=== PATIENT | male | born 1940 | race Caucasian/White ===

== ENCOUNTER → 2021-04-17 14:30 | Outpatient (CLI) | payer MEDICARE, OTHER, SELFPAY ==
[2021-04-17 16:04] LABS: ALB/GLOB Ratio 0.8 RATIO (0.9-2.4); AST(SGOT) 128 U/L (15-37); Alanine Aminotransfer ALT/SGPT 233 U/L (16-61); Albumin, Serum 3.4 g/dL (3.2-5.0); Alkaline Phosphatase 96 U/L (45-117); Anion Gap 7 (5-15); BUN 21 mg/dL (7-18); BUN/Creat Ratio 14.8 RATIO (10-20); Calcium,Total 9.3 mg/dL (8.5-10.1); Chloride 107 mmol/L (98-107); Creatinine, Serum 1.42 mg/dL (0.70-1.30); EST Glomerular Filtration Rate 51 mL/min (>60); Est Glom Filt Rate - Afr Amer 62 mL/min (>60); Ferritin 266 ng/mL (26-388); Globulin 4.4 g/dL (2.2-4.2); Glucose 110 mg/dL (74-106); LDH 258 U/L (87-241); Potassium 4.2 mmol/L (3.5-5.1); Protein, Total 7.8 g/dL (6.4-8.2); Sodium Level 143 mmol/L (136-145)
[2021-04-20 13:10] LABS: ANTINUCLEAR ANTIBODIES DIRECT Positive (Negative); Anti-Mitochondrial AB <20.0 Units (0.0-20.0)
[2021-04-24 06:08] LABS: Ceruloplasmin 15.1 mg/dL (16.0-31.0); HEPATITIS B SURFACE AG Negative (Negative); Hepatitis A IgM Antibody Negative (Negative); Hepatitis B Core AB IgM Negative (Negative)
[2021-04-24 10:00] LABS: Anti-Smooth Muscle ABS 6 Units (0-19); Carbohydrate Ag 19-9 2261 96 U/mL (0-35); Carcinoembryonic Antigen 2.6 ng/mL (0.0-4.7); Copper, Serum or Plasma 56 ug/dL (69-132); Hep C Antibodies <0.1 s/co ratio (0.0-0.9)
== END ==
LOC: LAB 14:32
PROVIDERS: Referring Provider Internal Medicine Gastroenterology; Visit Provider Internal Medicine Gastroenterology
DX: C22.8 Malignant neoplasm of liver, primary, unspecified as to type (principal); R16.0 Hepatomegaly, not elsewhere classified; C18.9 Malignant neoplasm of colon, unspecified
CPT/HCPCS: 36415; 80053; 80074; 82105; 82378; 82390; 82525; 82728; 83516; 83615; 86038; 86301

== ENCOUNTER → 2021-05-01 08:37 | Outpatient (CLI) | payer MEDICARE, OTHER, SELFPAY ==
[2021-05-01] VITALS (10 sets, daily range): BP systolic 91–145; BP diastolic 49–72; PULSE 51–64; RESP 14–21; TEMP 36.6; O2SAT 94–100; BMI 26.2
--- NOTE | 2021-05-01 | IMM_PTH ---
PATIENT: SERVANDO BOSTON LOC: CT U#:[id number] AGE/SX: 85/M ROOM: RE05/01/[address]: Dr. Mahendra Young DO : 1940 BED: DIS: SPEC #: [id number] RECD: 05/04/21 14:10 STATUS: RUIZ REQ #: [id number] KARIN: 05/01/21 00:[address]: Mahendra Young DEPT: IMMUNOHISTOCHEMISTRY RECD BY: Geraldine Anna ENTERED: 05/04/21 14:11 SP TYPE: IMMUNO OTHR DR: [facility] Tissues: Liver, NOS Procedures: RCC (add) NAPSIN A (add) CK20 (add) CK5-6 (add) CK7 (add) CK8 (add) HEP PAR (add) TTF1 (add) Pankeratin (initial) P40 (add) PSAP (add) PHYSICIAN & INSTITUTION [address] [address] SPECIMEN INFORMATION: Tissue Source: Liver mass Clinical Info: Liver mass Specimen Number: [id number] CPT code: 18580, 72353 x10 METHODOLOGY: Deparaffinized sections of prefer/formalin-fixed tissue or PAP/DQ stained slides are incubated with monoclonal/polyclonal antibodies/oligonucleotide probes. Localization is made via biotin free immunoperoxidase method. Appropriate controls are performed and reacted as expected. Results on target cell population are indicated in the following table: RESULTS: ANTIBODY / CLONE RESULT AE1-3 (AE1/AE3/PCK26) negative CK7 (OV-TL12/30) negative CK8 (01qtfmE08) negative CK20 (KS20.8) negative TTF-1 (8G7G3/1) positive, cytoplasmic staining Napsin A (Rabbit Polyclonal) negative HepPar (OCh1E5) positive RCC (PN-15) negative PSAP (PASE/4LJ) negative CK5-6 (D5 & 1684) negative P40 (BC28) negative These tests were developed and their performance characteristics determined by [facility]. They may not have been cleared or approved by the U.S. Food and Drug Administration. The FDA has determined that such clearance or approval is not necessary. The above immunohistochemical/dualISH markers are ordered and reviewed by the Pathologist. INTERPRETATION: Liver mass, CT-guided core biopsy: Consistent with hepatocellular carcinoma. LAKEISHA:mel 05/05/2021 Case has been reviewed in consultation with Dr. Martines who concurs with the above diagnosis. IDC:AM
--- NOTE | 2021-05-01 | ASPIGT_PTH ---
PATIENT: SERVANDO BOSTON LOC: [place] U#:[id number] AGE/SX: 85/M ROOM: RE05/01/[address]: Dr. Mahendra Young DO : 1940 BED: DIS: SPEC #: [id number] RECD: 05/01/21 10:58 STATUS: RUIZ REShashi #: [id number] KARIN: 05/01/21 00:[address]: Mahendra Young DEPT: SURGICAL PATHOLOGY RECD BY: Carlos Eastman ENTERED: 05/01/21 10:58 SP TYPE: ASP RAD OT DR: [facility] Tissues: Liver, NOS Procedures: FNA Specimen Adequacy Special Stain Group II Surgery Specimen Level IV Imprint (control) HEADER OPERATION: Liver, CT-guided core biopsy PRE-OP DIAGNOSIS: Cirrhosis / liver mass TISSUE SUBMITTED: Liver mass 18-gauge core x5 MICROSCOPIC DIAGNOSIS Liver mass, CT-guided core biopsy: Consistent with hepatocellular carcinoma. See comment. LAKEISHA:mel 05/04/2021 COMMENT The specimen is evaluated at the time of biopsy by Dr. Hunt. Immediate Evaluation = Adequate for evaluation. Atypical cells noted. Immunohistochemistry ([id number]) supports the above diagnosis. Flow cytometry study from [employer] [facility] shows no evidence of B or T-cell non-Hodgkin lymphoma. The complete report s viewable in patient?s EMR. Case has been reviewed in consultation with Dr. Martines who concurs with the above diagnosis. IDC:AM MICROSCOPIC DESCRIPTION Slides are reviewed. GROSS DESCRIPTION Received in fixative is one container labeled with the patient's name and designated liver. The specimen consists of multiple elongated fragments of rodriguez soft tissue that in aggregate measure 1.5 x 0.1 x <0.1 cm. The specimen is totally submitted in one cassette. Three touch imprints are prepared at the time of core biopsy. One core is submitted for flow cytometry studies. / SJ:mel 05/01/21 TC:0 CPT: 73667, 36576
--- NOTE | 2021-05-01 08:50 | CT_ITS ---
PROCEDURE: CT DIRECTED CORE LIVER BIOPSY INDICATION: Male, 81 years old. Liver mass and cirrhosis PHYSICIAN: Dr. EMILY Abraham CONSENT: Written informed consent was obtained having explained the risks, benefits and alternatives in detail with the patient who accepted the risks and agreed to proceed. Laboratory review and clinical assessment was performed. CONSCIOUS SEDATION PROTOCOL: The Drugs used were: 2 mg Versed, IV., and 50 mcg Fentanyl, IV. The sedation time was: 23 minutes. Conscious sedation was started at 10:10 AM and terminated at 10:33 AM The conscious sedation protocol was independently monitored. RADIATION DOSAGE (If Supplied By Facility): CTDIvol = ( 14 ) mGy, DLP = ( 925:22 ) mGycm Individualized dose optimization techniques were used for this CT. TECHNIQUE: Using CT image guidance with image documentation, a suitable location in the right lobe of the liver was identified. Using a right lateral approach, puncture of the liver was uneventful with an 18-gauge core needle system. 5 18-gauge core samples were obtained, and submitted in formalin to the pathologist for further assessment. Followup CT scan revealed no distinct sequelae. CT/Biopsy/Inj or Needle Placement IMPRESSION: 1. CT directed core needle biopsy of the liver, using CT image guidance with image documentation as described. 2. Conscious Sedation protocol utilized with independent monitoring. Electronically Signed: Paras Vance MD at 10:59 EDT , Service support ,
[2021-05-01 08:59] LABS: Platelet Count 237 K/mm3 (150-450)
[2021-05-01 09:07] LABS: International Normalized Ratio 1.1; Prothrombin Time (Protime)PT. 13.9 SECONDS (11.7-14.9)
[2021-05-01] MEDS: fentaNYL 100 MCG/2 ML Ampul IV (10:10)
[2021-05-01] MEDS: Midazolam 2 MG/2 ML Syringe IV (10:10)
[2021-05-01] MEDS: Lidocaine 2% (20 ml mdv) 20 ML Vial INFILT (10:15)
[2021-05-01] MEDS: Ondansetron 4 MG/2 ML Vial IV (10:51)
[2021-05-01] MEDS: fentaNYL 100 MCG/2 ML Ampul 25 MCG IV (11:17)
== END | disposition home or self-care (01) ==
PROVIDERS: Referring Provider Internal Medicine Gastroenterology; Visit Provider Internal Medicine Gastroenterology
DX: C22.8 Malignant neoplasm of liver, primary, unspecified as to type (principal); R16.0 Hepatomegaly, not elsewhere classified; R18.8 Other ascites; K76.9 Liver disease, unspecified
CPT/HCPCS: 47000; 36415; 77012; 85049; 85610; 85730; 88172; 88305; 88307; 88313; 88341; 88342; 99156; J7040; A4216; J2405

== ENCOUNTER 2021-05-04 21:37 | Emergency (ER) | payer MEDICARE, OTHER, SELFPAY ==
[2021-05-04 21:38] VITALS: BP 100/49; PULSE 68; RESP 18; TEMP 35.8; O2SAT 98; BMI 26.2
--- NOTE | 2021-05-04 22:49 | CT_ITS ---
STUDY: CT ABDOMEN AND PELVIS WITH CONTRAST REASON FOR EXAM: Male, 81 years old. Abdominal pain RADIATION DOSAGE (If Supplied By Facility): CTDIvol = ( 14.61 ) mGy, DLP = ( 1026.33 ) mGycm TECHNIQUE: Transaxial images were obtained from the dome of the diaphragm to the symphysis pubis without oral contrast. IV 100mL Isovue-300 was administered. Sagittal and coronal images were reconstructed. Individualized dose optimization techniques were used for this CT. COMPARISON: 05/01/2021 FINDINGS: Small right pleural effusion and overlying atelectasis. Coronary artery calcifications. Large, heterogeneously enhancing right liver mass redemonstrated. Normal gallbladder and extrahepatic biliary system. Heterogeneously enhancing spleen. Normal pancreas. Moderate perisplenic and mild perihepatic hyperattenuating fluid with extension into the pelvis. Normal bilateral adrenal glands. Normal right kidney. Normal left kidney. Normal visualized stomach. Normal small intestine. There are multiple colonic diverticula consistent with diverticulosis. The appendix is visualized and appears normal. Normal abdominal aorta. Normal inferior vena cava. Normal retroperitoneum. Normal urinary bladder. Normal visualized prostate gland. Normal abdominal wall. Dextroscoliosis centered on L2. CT/Abdomen/Pelvis W IV Cont ONLY IMPRESSION: Moderate hemoperitoneum, perhaps sequela of recent biopsy. Small right pleural effusion with atelectasis. Electronically Signed: Kayden Levi MD at 0:34 EDT Tel , Service support ,
--- NOTE | 2021-05-04 22:50 | EDS_ITS ---
HPI HPI - GI History of Present Illness Chief Complaint: Abd Pain Narrative Narrative: 81-year-old male presenting with right-sided abdominal pain. He states he had biopsies done by Dr. Young on the . He does not know the results of these. Patient states they were trying to rule out cancer. Patient states since then he has pain in the right side of his abdomen with movement. He has not been vomiting. He denies diarrhea. He states he was initially c onstipated but is now having bowel movements. He denies black or bloody stools. He is not on anticoagulation other than aspirin. Patient denies fever, chills. Patient denies any urinary complaints. [facility] PFS Medical History Abdominal pain with vomiting CAD (coronary artery disease) Cardiomyopathy COPD (chronic obstructive pulmonary disease) Diabetes type 2, controlled Dyspepsia Former smoker HTN (hypertension) Hyperlipidemia Liver mass Polyosteoarthritis Shingles no medical history Home Medications albuterol sulfate 90 mcg/actuation aerosol inhaler 2 puff INHALATION Q6H PRN 04/17/21 [History Last Taken Unknown] amlodipine 5 mg tablet 5 mg PO DAILY 04/17/21 [History Last Taken Unknown] aspirin 81 mg tablet,delayed release 81 mg PO DAILY 04/17/21 [History Last Taken Unknown] cholecalciferol (vitamin D3) 25 mcg (1,000 unit) capsule 25 mcg PO DAILY 04/17/21 [History Last Taken Unknown] losartan 100 mg-hydrochlorothiazide 12.5 mg tablet 1 tab PO DAILY 04/17/21 [History Last Taken Unknown] metoprolol succinate 25 mg tablet,extended release 24 hr 25 mg PO DAILY 04/17/21 [History Last Taken Unknown] vitamins A,C,L-rviy-ecbynx 14,320 unit-226 mg-200 unit capsule 1 cap PO BID 04/17/21 [History Last Taken Unknown] ondansetron HCl 4 mg tablet 4 mg PO Q8H PRN #90 tab 05/01/21 [Rx Last Taken Unknown] Allergy/AdvReac Type Severity Reaction Status Date / Time No Known Allergies Allergy Unverified 05/04/21 22:28 Surgical History H/O cataract extraction H/O coronary angioplasty H/O heart artery stent H/O knee surgery H/O shoulder replacement Social History Smoking Status: Former smoker ROS ROS ED Constitutional Constitutional ED: Denies chills or fever(s) ENT ENT ED: Denies rhinorrhea or sore throat Cardiovascular Cardiovascular: Denies chest pain or palpitations Respiratory/Chest Respiratory/Chest: Denies cough, dyspnea or sputum Gastrointestinal Gastrointestinal: Reports abdominal pain and constipation; Denies diarrhea, nausea or vomiting Genitourinary Genitourinary ED: Denies dysuria or hematuria Musculoskeletal Musculoskeletal: Denies arthralgias or myalgias Integumentary Denies Abrasions or rash EXAM Physical Exam Const Vital Signs: 05/04/21 21:38 05/05/21 01:23 Temperature 96.5 F L Temperature Source Temporal Pulse Rate 68 81 Respiratory Rate 18 16 Blood Pressure 100/49 L 101/68 Blood Pressure Mean 66 79 Pulse Ox 98 93 Oxygen Delivery Method Room Air Room Air Positive well nourished General Appearance ED: NAD HEENT Reports moist mucous membranes normocephalic and atraumatic Eyes PERRL and EOMs intact bilaterally Resp normal respiratory effort and clear to auscultation bilaterally Cardio regular rate and regular rhythm GI Palpation: soft and tender RLQ and RUQ Back/Spine no CVA tenderness Neuro CN's II-XII intact bilaterally Sensorium / Orientation: alert, oriented to person, oriented to place and oriented to time Psych mental status grossly normal and thought process normal Skin Lesions: no lesions Rashes: no rashes MDM MDM MDM Narrative Medical decision making narrative: Patient presenting with abdominal pain. He states this mostly in the right upper quadrant. He recently had liver biopsies performed. Patient does not know the results of the biopsies. I did draw blood work and the patient's hemoglobin is 8.6. He has no leukocytosis. Platelets are 195. Creatinine is slightly above baseline at 2.07. Patient was given IV fluids. I could not find a previous hemoglobin on the patient not even before the procedure. I did look in clinisync and there are none documented there either. I assume that this is bleeding so I did type and screen him. The patient's CT scan does show the moderate hemoperitoneum and the likely sources biopsies of the liver. At this point I spoke with Dr. Kamara who stated that the patient needed to be transferred for CT angiogram. I spoke with [facility] and they were amenable to a transfer from ED to ED to get the patient stabilized. Patient was consented for this and is also amenable to this plan. Since the patient's hemoglobin is 8.6 and he has a hemoperitoneum I did crossmatch him for 2 units of blood. He will be sitting here for at least 3 hours waiting for a ride. Of note his blood pressure is the same as it was the other day and has not dropped. Again he was given IV fluids and he will be transfused blood. I will continue to monitor him until transfer. Impression: 1. History of liver biopsy 2. Anemia 3. Hemoperitoneum Lab Data Labs: Laboratory Results - last 24 hr 05/04/21 05/04/21 05/05/21 23:06 23:06 01:15 WBC 6.2 RBC 2.76 L Hgb 8.6 L Hct 26.1 L MCV 94.6 H MCH 31.2 MCHC 33.0 RDW Std Deviation 51.3 H RDW Coeff of Daniel 15.0 H Plt Count 195 MPV 10.9 Immature Gran % (Auto) 0.800 Neut % (Auto) 80.9 H Lymph % (Auto) 11.0 L Grand % (Auto) 6.3 Eos % (Auto) 0.5 Baso % (Auto) 0.5 Absolute Neuts (auto) 5.0 Absolute Lymphs (auto) 0.68 L Nucleated RBC % 0 PT 15.5 H INR 1.3 Sodium 138 Potassium 4.3 Chloride 105 Carbon Dioxide 28.0 Anion Gap 5 BUN 33 H Creatinine 2.07 H Estim Creat Clear Calc 27.99 Est GFR (MDRD) Af Amer 40 L Est GFR (MDRD) Non-Af 33 L BUN/Creatinine Ratio 15.9 Glucose 139 H Calcium 9.0 Total Bilirubin 1.10 H AST 210 H ALT 419 H Alkaline Phosphatase 72 Total Protein 6.9 Albumin 2.9 L Globulin 4.0 Albumin/Globulin Ratio 0.7 L Lipase 140 Crossmatch 05/05/21 01:15 WBC RBC Hgb Hct MCV MCH MCHC RDW Std Deviation RDW Coeff of Daniel Plt Count MPV Immature Gran % (Auto) Neut % (Auto) Lymph % (Auto) Grand % (Auto) Eos % (Auto) Baso % (Auto) Absolute Neuts (auto) Absolute Lymphs (auto) Nucleated RBC % PT INR Sodium Potassium Chloride Carbon Dioxide Anion Gap BUN Creatinine Estim Creat Clear Calc Est GFR (MDRD) Af Amer Est GFR (MDRD) Non-Af BUN/Creatinine Ratio Glucose Calcium Total Bilirubin AST ALT Alkaline Phosphatase Total Protein Albumin Globulin Albumin/Globulin Ratio Lipase Crossmatch See Detail Radiography Diagnostic Testing: Clinical Impression(s) from Imaging Studies Abdomen/Pelvis CT 05/04/21 22:49 IMPRESSION: Moderate hemoperitoneum, perhaps sequela of recent biopsy. Small right pleural effusion with atelectasis. Electronically Signed: Kayden Levi MD at 0:34 EDT Tel , Service support , Discharge Plan Triage Chief Complaint: Abd Pain ED Provider: Klaus Corbin Dx/Rx/DC Orders Prescriptions: No Action albuterol sulfate 90 mcg/actuation HFA aerosol inhaler 2 puff inhalation Q6H PRN (Reason: Wheezing) RF: 0 amlodipine 5 mg tablet 5 mg PO DAILY RF: 0 aspirin [Adult Aspirin Regimen] 81 mg tablet,delayed release (DR/EC) 81 mg PO DAILY RF: 0 losartan-hydrochlorothiazide 100-12.5 mg tablet 1 tab PO DAILY RF: 0 metoprolol succinate 25 mg tablet extended release 24 hr 25 mg PO DAILY RF: 0 ICaps AREDS 14,320-226-200 ebao-rl-dxzx capsule 1 cap PO BID RF: 0 cholecalciferol (vitamin D3) 25 mcg (1,000 unit) capsule 25 mcg PO DAILY RF: 0 ondansetron HCl [Zofran] 4 mg tablet 4 mg PO Q8H PRN (Reason: nausea and vomiting) Qty: 90 RF: 0 Primary Care Provider: [facility],[place]
[2021-05-04] MEDS: Ondansetron 4 MG/2 ML Vial IV (23:08)
[2021-05-04] MEDS: Morphine 4 MG/ML Syringe IV (23:08)
[2021-05-04] MEDS: 0.9% Normal Saline 1,000 ML 999 ML IV (23:08)
[2021-05-04 23:18] LABS: Absolute Lymphocyte Count 0.68 X10^3/uL (0.83-4.51); Basophil# 0.03 X10^3/uL; Basophil% 0.5 % (0-1); Eosinophil# 0.03 X10^3/uL; Eosinophils% 0.5 % (0-5); Hematocrit 26.1 % (40-54); Hemoglobin 8.6 g/dL (13.0-16.5); Lymphocyte # 0.68 X10^3/ul (0.83-4.51); Mean Corpuscular Hgb 31.2 pg (27.0-32.0); Mean Corpuscular Volume 94.6 fL (80-94); Mean Platelet Vol. 10.9 fl (6.2-12.0); Monocyte# 0.39 X10^3/uL; Monocyte% 6.3 % (0-10); NRBC Flagged by Analyzer 0 % (0-5); Neutrophil # 5.02 X10^3/uL (2.7-7.7); Neutrophil % 80.9 % (47-70); Platelet Count 195 K/mm3 (150-450); RBC Distribution Width SD 51.3 fl (35.1-43.9); Red Blood Count 2.76 M/mm3 (4.6-6.2); White Blood Count 6.2 K/mm3 (4.4-11.0)
[2021-05-04 23:33] LABS: ALB/GLOB Ratio 0.7 RATIO (0.9-2.4); AST(SGOT) 210 U/L (15-37); Alanine Aminotransfer ALT/SGPT 419 U/L (16-61); Albumin, Serum 2.9 g/dL (3.2-5.0); Alkaline Phosphatase 72 U/L (45-117); Anion Gap 5 (5-15); BUN 33 mg/dL (7-18); BUN/Creat Ratio 15.9 RATIO (10-20); Chloride 105 mmol/L (98-107); Creatinine, Serum 2.07 mg/dL (0.70-1.30); EST Glomerular Filtration Rate 33 mL/min (>60); Est Glom Filt Rate - Afr Amer 40 mL/min (>60); Estimated Creatinine Clearance 27.99 ml/min; Glucose 139 mg/dL (74-106); Lipase 140 U/L (73-393); Potassium 4.3 mmol/L (3.5-5.1); Protein, Total 6.9 g/dL (6.4-8.2); Sodium Level 138 mmol/L (136-145)
[2021-05-05 01:23] VITALS: BP 101/68; PULSE 81; RESP 16; O2SAT 93
[2021-05-05 01:32] LABS: International Normalized Ratio 1.3; Prothrombin Time (Protime)PT. 15.5 SECONDS (11.7-14.9)
--- NOTE | 2021-05-05 01:41 | ED.RN ---
PHYSIC[facility]ANS ETA IS 3 HOURS, ASKED TO OUTSOURCE PATIENT.
[2021-05-05 02:32] VITALS: PULSE 82; RESP 13; O2SAT 96
--- NOTE | 2021-05-05 02:37 | ED.RN ---
CALLED [facility] TO SEE IF THEY HAD A GROUND CREW THAT WOULD BE ABLE TO TAKE THIS PATIENT, THEY ASKED IF WE WANTED TO FLY THIS PATIENT AND I GAVE THE PHONE OVER TO DR. BAHENA. THEY DECIDED ON FLYING SO JONNA WILL BE TAKING THE PATIENT.
[2021-05-05 02:41] VITALS: BP 105/68; PULSE 76; RESP 16; O2SAT 98
[2021-05-05 02:48] VITALS: BP 99/60; PULSE 76; RESP 17; TEMP 36.6; O2SAT 99
--- NOTE | 2021-05-05 03:11 | ED.RN ---
blood continued during transport for [facility] and second unit of blood sent with life [facility] crew
[2021-05-05 03:12] VITALS: BP 124/76; PULSE 74; RESP 18; TEMP 36.7; O2SAT 98
== END 2021-05-05 03:13 | disposition short-term general hospital (02) ==
PROVIDERS: Emergency Provider Student in an Organized Health Care Education/Training Program
DX: K66.1 Hemoperitoneum (principal); D64.9 Anemia, unspecified; I25.10 Atherosclerotic heart disease of native coronary artery without angina pectoris; J44.9 Chronic obstructive pulmonary disease, unspecified; E11.9 Type 2 diabetes mellitus without complications; E78.5 Hyperlipidemia, unspecified; I10 Essential (primary) hypertension; Z87.891 Personal history of nicotine dependence; Z79.51 Long term (current) use of inhaled steroids; Z79.899 Other long term (current) drug therapy
CPT/HCPCS: 36430; 74177; 80053; 83690; 85025; 85610; 86850; 86900; 86901; 86920; 86922; 96361; 96374; 96375; 99285; J7030; J7040; P9016; Q9967; A4216; J2405

== ENCOUNTER → 2021-05-08 07:37 | Outpatient (CLI) | payer MEDICARE, OTHER, SELFPAY ==
--- NOTE | 2021-05-08 07:39 | MRI_ITS ---
EXAM: MR ABDOMEN WITHOUT AND WITH INTRAVENOUS CONTRAST : 1940 CLINICAL INDICATION: Liver mass TECHNIQUE: Multiplanar and multisequence MR images of the abdomen without and with intravenous contrast. This report was created using [employer] report [employer] technology. CONTRAST: Not specified COMPARISON: CT abdomen and pelvis May 04, 2021 FINDINGS: LOWER THORAX: Small pleural effusion present bilaterally as well as mild bibasilar atelectasis. LIVER: 16 x 14 cm mass occupying the right hepatic lobe again noted. The lesion demonstrates restricted diffusion, contrast enhancement and central area of necrosis. No signal dropout on the out of phase image within the lesion to suggest the presence of lipid. No evidence of tumor vein thrombus. GALLBLADDER AND BILE DUCTS: Unremarkable. No gallstones. No gallbladder distention or wall edema. No intra- or extrahepatic biliary ductal dilation. PANCREAS: Unremarkable. No focal cystic or solid mass. SPLEEN: Unremarkable. Normal size without focal cystic or solid mass. ADRENALS: Unremarkable. No nodules. KIDNEYS AND URETERS: Unremarkable. Normal renal size and position. No hydronephrosis. INTRAPERITONEAL SPACE: Small volume ascites noted within the upper abdomen. No free air. VASCULATURE: Abdominal aorta is non-dilated. LYMPH NODES: No enlarged lymph nodes. MRI/MRI Abd WITH and W/O Contrast IMPRESSION: 1. 16 x 14 cm liver mass which may represent primary or metastatic neoplasm. 2. Small volume ascites. at 1217 Reported and signed by: Rohit Maza MD Electronically Signed: Rohit Maza MD at 12:16 EDT Tel , Service support ,
[2021-05-08 12:19] LABS: Absolute Lymphocyte Count 0.91 X10^3/uL (0.83-4.51); Basophil# 0.05 X10^3/uL; Basophil% 1.1 % (0-1); Eosinophil# 0.24 X10^3/uL; Eosinophils% 5.3 % (0-5); Hematocrit 33.9 % (40-54); Hemoglobin 10.7 g/dL (13.0-16.5); Lymphocyte # 0.91 X10^3/ul (0.83-4.51); Lymphocyte % 20.1 % (19-41); Mean Corp Hgb Conc 31.6 g/dL (32-36); Mean Corpuscular Hgb 30.1 pg (27.0-32.0); Mean Corpuscular Volume 95.2 fL (80-94); Mean Platelet Vol. 10.8 fl (6.2-12.0); Monocyte# 0.29 X10^3/uL; Monocyte% 6.4 % (0-10); NRBC Flagged by Analyzer 0 % (0-5); Neutrophil # 3.02 X10^3/uL (2.7-7.7); Neutrophil % 66.7 % (47-70); Platelet Count 201 K/mm3 (150-450); RBC Distribution Width CV 15.4 % (11.6-14.6); RBC Distribution Width SD 53.2 fl (35.1-43.9); Red Blood Count 3.56 M/mm3 (4.6-6.2); White Blood Count 4.5 K/mm3 (4.4-11.0)
[2021-05-08 12:59] LABS: ALB/GLOB Ratio 0.7 RATIO (0.9-2.4); AST(SGOT) 173 U/L (15-37); Alanine Aminotransfer ALT/SGPT 325 U/L (16-61); Albumin, Serum 2.9 g/dL (3.2-5.0); Alkaline Phosphatase 72 U/L (45-117); Anion Gap 7 (5-15); BUN 26 mg/dL (7-18); BUN/Creat Ratio 21.3 RATIO (10-20); Chloride 106 mmol/L (98-107); Creatinine, Serum 1.22 mg/dL (0.70-1.30); EST Glomerular Filtration Rate 61 mL/min (>60); Est Glom Filt Rate - Afr Amer 73 mL/min (>60); Globulin 4.2 g/dL (2.2-4.2); Glucose 119 mg/dL (74-106); Potassium 3.8 mmol/L (3.5-5.1); Protein, Total 7.1 g/dL (6.4-8.2); Sodium Level 141 mmol/L (136-145)
[2021-05-10 15:30] LABS: Carbohydrate Ag 19-9 2261 90 U/mL (0-35)
== END ==
PROVIDERS: Referring Provider Internal Medicine Gastroenterology; Visit Provider Internal Medicine Gastroenterology
DX: C22.0 Liver cell carcinoma (principal); R16.0 Hepatomegaly, not elsewhere classified
CPT/HCPCS: 36415; 74183; 80053; 82105; 85025; 86301; A9575

== ENCOUNTER → 2021-05-12 16:38 | Outpatient (CLI) | payer MEDICARE, OTHER, SELFPAY ==
--- NOTE | 2021-05-12 16:45 | RAD_ITS ---
STUDY: X-RAY CHEST REASON FOR EXAM: Male, 81 years old. Liver carcinoma. Shortness of breath. TECHNIQUE: Frontal and lateral views of the chest. COMPARISON: None. FINDINGS: Hyperexpansion with mild diffuse interstitial pattern. Scattered healed parenchymal granulomatous calcifications. Bilateral apical pleural thickening/scarring. Cardiomegaly. Calcified mediastinal and hilar lymph nodes are noted Normal visualized pulmonary arteries. Aortic tortuosity. Thoracic spondylosis. Normal visualized ribs, clavicles, and shoulders. There is no demonstrated abnormality of the visualized soft tissue structures of the upper abdomen. RAD/Chest PA and Lateral IMPRESSION: Cardiomegaly with hyperexpansion and bilateral apical pleural thickening/scarring. No active or acute cardiopulmonary disease. Electronically Signed: Kushal Jennings MD at 10:01 EDT , Service support ,
== END ==
PROVIDERS: Referring Provider Internal Medicine Medical Oncology; Visit Provider Internal Medicine Medical Oncology
DX: C22.0 Liver cell carcinoma (principal)
CPT/HCPCS: 71046